=== PATIENT | female | born 1995 | race Two or more races ===

== ENCOUNTER 2023-07-14 00:52 | Emergency (ER) | payer OTHER ==
[~2023-07-14] VITALS: Ht 157.5 cm; Wt 68.0 kg
[2023-07-14 02:06] VITALS: TEMP 99.2
[2023-07-14 04:37] VITALS: BP 135/76; O2SAT 97
== END 2023-07-14 04:38 | disposition home or self-care (01) ==
LOC: EDSEX 00:57 → ER 00:57
DX: R07.0 Pain in throat (principal); J45.909 Unspecified asthma, uncomplicated
CPT/HCPCS: 86403-TC